=== PATIENT | male | born 1950 | race Caucasian/White ===

== ENCOUNTER → 2023-07-18 06:32 | Outpatient (REF) | payer MEDICARE, OTHER, SELFPAY ==
[2023-07-18 10:56] LABS: HDL Cholesterol 54 mg/dl; LDL Cholesterol, Calculated 73 mg/dl; Total Cholesterol 152 mg/dl (50-199); Triglyceride 126 mg/dl (10-149); Very Low Density Lipoprotein 25 mg/dl (0-30)
== END ==
LOC: HWLAB 06:32
PROVIDERS: ATTENDING PHYSICIAN Nurse Practitioner; FAMILY PHYSICIAN Family Medicine
DX: E78.00 Pure hypercholesterolemia, unspecified (principal)
CPT/HCPCS: 36415; 80061

== ENCOUNTER → 2023-07-21 07:12 | Outpatient (REF) | payer MEDICARE, OTHER, SELFPAY | LOC: HWRAD 07:12 | PROVIDERS: ATTENDING PHYSICIAN Nurse Practitioner; FAMILY PHYSICIAN Family Medicine; REFERRING PHYSICIAN Internal Medicine Cardiovascular Disease | DX: I77.810 Thoracic aortic ectasia (principal) | CPT/HCPCS: 74176 ==

== ENCOUNTER → 2023-08-06 07:06 | Outpatient (REF) | payer MEDICARE, OTHER, SELFPAY ==
[2023-08-06 10:26] LABS: Blood Urea Nitrogen 31 mg/dl (9-20); Calcium 9.8 mg/dl (8.4-10.2); Carbon Dioxide 25 mmol/L (22-30); Chloride 106 mmol/L (98-107); Glucose 105 mg/dl (70-99); Potassium 4.1 mmol/L (3.5-5.1); Sodium 143 mmol/L (135-145); eGFR 49.16
[2023-08-06 12:08] LABS: PSA, Total - Diagnostic 2.36 ng/ml (0.0-4.0)
== END ==
LOC: HWLAB 07:06
PROVIDERS: ATTENDING PHYSICIAN Specialist; FAMILY PHYSICIAN Family Medicine
DX: C61 Malignant neoplasm of prostate (principal); D36.9 Benign neoplasm, unspecified site
CPT/HCPCS: 36415; 80048; 84153

== ENCOUNTER → 2023-10-31 07:25 | Outpatient (REF) | payer MEDICARE, OTHER, SELFPAY ==
[2023-10-31 09:58] LABS: Blood Urea Nitrogen 28 mg/dl (9-20); Calcium 9.7 mg/dl (8.4-10.2); Carbon Dioxide 25 mmol/L (22-30); Chloride 110 mmol/L (98-107); Glucose 104 mg/dl (70-99); Potassium 4.4 mmol/L (3.5-5.1); Sodium 146 mmol/L (135-145)
[2023-10-31 10:24] LABS: PSA, Total - Diagnostic 1.14 ng/ml (0.0-4.0)
== END ==
LOC: HWLAB 07:25
PROVIDERS: ATTENDING PHYSICIAN Specialist; FAMILY PHYSICIAN Family Medicine
DX: C61 Malignant neoplasm of prostate (principal); D36.9 Benign neoplasm, unspecified site
CPT/HCPCS: 36415; 80048; 84153

== ENCOUNTER → 2023-11-20 06:56 | Outpatient (REF) | payer MEDICARE, OTHER, SELFPAY ==
[2023-11-20 10:19] LABS: ALT (SGPT) 49 U/L (0-50); AST (SGOT) 50 U/L (17-59); Albumin 4.6 g/dl (3.5-5.0); Alkaline Phosphatase 104 U/L (38-126); Blood Urea Nitrogen 26 mg/dl (9-20); Carbon Dioxide 26 mmol/L (22-30); Chloride 109 mmol/L (98-107); Glucose 100 mg/dl (70-99); HDL Cholesterol 53 mg/dl; LDL Cholesterol, Calculated 63 mg/dl; Potassium 4.4 mmol/L (3.5-5.1); Sodium 143 mmol/L (135-145); Total Bilirubin 1.1 mg/dl (0.2-1.3); Total Cholesterol 133 mg/dl (50-199); Total Protein 7.4 g/dl (6.3-8.2); Triglyceride 85 mg/dl (10-149); Very Low Density Lipoprotein 17 mg/dl (0-30)
== END ==
LOC: HWLAB 06:56
PROVIDERS: ATTENDING PHYSICIAN Family Medicine
DX: E78.5 Hyperlipidemia, unspecified (principal)
CPT/HCPCS: 36415; 80053; 80061

== ENCOUNTER → 2023-12-08 07:01 | Outpatient (REF) | payer MEDICARE, OTHER, SELFPAY ==
[2023-12-08 10:27] LABS: Blood Urea Nitrogen 27 mg/dl (9-20); Calcium 9.8 mg/dl (8.4-10.2); Carbon Dioxide 26 mmol/L (22-30); Chloride 110 mmol/L (98-107); Glucose 103 mg/dl (70-99); Phosphorus 3.7 mg/dl (2.5-4.5); Potassium 4.2 mmol/L (3.5-5.1); Sodium 144 mmol/L (135-145); eGFR 49.16
[2023-12-08 10:52] LABS: Urine Protein < 5 mg/dl
== END ==
LOC: HWLAB 07:01
PROVIDERS: ATTENDING PHYSICIAN Specialist; FAMILY PHYSICIAN Family Medicine
DX: I10 Essential (primary) hypertension (principal); E78.5 Hyperlipidemia, unspecified; N17.9 Acute kidney failure, unspecified
CPT/HCPCS: 36415; 80048; 82570; 83970; 84100; 84156

== ENCOUNTER → 2023-12-30 07:24 | Outpatient (REF) | payer MEDICARE, OTHER, SELFPAY ==
[2023-12-30 14:44] LABS: Uric Acid 7.1 mg/dl (3.5-8.5)
== END ==
LOC: HWLAB 07:24
PROVIDERS: ATTENDING PHYSICIAN Specialist; FAMILY PHYSICIAN Family Medicine
DX: I10 Essential (primary) hypertension (principal); N18.31 Chronic kidney disease, stage 3a
CPT/HCPCS: 36415; 84550

== ENCOUNTER → 2024-01-30 12:19 | Outpatient (REF) | payer MEDICARE, OTHER, SELFPAY ==
[2024-01-30 16:02] LABS: ALT (SGPT) 32 U/L (0-50); AST (SGOT) 35 U/L (17-59); Albumin 4.4 g/dl (3.5-5.0); Alkaline Phosphatase 92 U/L (38-126); Blood Urea Nitrogen 26 mg/dl (9-20); Calcium 9.9 mg/dl (8.4-10.2); Carbon Dioxide 23 mmol/L (22-30); Chloride 107 mmol/L (98-107); Glucose 96 mg/dl (70-99); Potassium 4.5 mmol/L (3.5-5.1); Sodium 145 mmol/L (135-145); Total Bilirubin 1.1 mg/dl (0.2-1.3); eGFR 49.16
[2024-01-30 16:16] LABS: NT-proBNP 1940 pg/ml
== END ==
LOC: HWLAB 12:19
PROVIDERS: ATTENDING PHYSICIAN Internal Medicine Cardiovascular Disease; FAMILY PHYSICIAN Family Medicine
DX: R79.89 Other specified abnormal findings of blood chemistry (principal); I50.30 Unspecified diastolic (congestive) heart failure
CPT/HCPCS: 36415; 80053; 83880

== ENCOUNTER → 2024-02-17 07:24 | Outpatient (REF) | payer MEDICARE, OTHER, SELFPAY ==
[2024-02-17 10:02] LABS: Blood Urea Nitrogen 23 mg/dl (9-20); Calcium 9.7 mg/dl (8.4-10.2); Carbon Dioxide 22 mmol/L (22-30); Chloride 111 mmol/L (98-107); Glucose 107 mg/dl (70-99); Potassium 4.1 mmol/L (3.5-5.1); Sodium 148 mmol/L (135-145); eGFR 49.16
[2024-02-17 10:36] LABS: PSA, Total - Diagnostic 0.92 ng/ml (0.0-4.0)
== END ==
LOC: HWLAB 07:24
PROVIDERS: ATTENDING PHYSICIAN Specialist; FAMILY PHYSICIAN Family Medicine
DX: C61 Malignant neoplasm of prostate (principal); D36.9 Benign neoplasm, unspecified site
CPT/HCPCS: 36415; 80048; 84153

== ENCOUNTER → 2024-02-18 07:44 | Outpatient (REF) | payer MEDICARE, OTHER, SELFPAY | LOC: DHCBC/DCA 07:44 | PROVIDERS: ATTENDING PHYSICIAN Internal Medicine Cardiovascular Disease; FAMILY PHYSICIAN Family Medicine | DX: I48.91 Unspecified atrial fibrillation (principal); I48.92 Unspecified atrial flutter; R79.89 Other specified abnormal findings of blood chemistry | CPT/HCPCS: 78452; 93017; A9500; J2785 ==

== ENCOUNTER → 2024-04-05 09:45 | Outpatient (REF) | payer MEDICARE, OTHER, SELFPAY | LOC: DHSLP 09:45 | PROVIDERS: ATTENDING PHYSICIAN Internal Medicine Cardiovascular Disease; FAMILY PHYSICIAN Family Medicine | DX: G47.19 Other hypersomnia (principal); R06.83 Snoring | CPT/HCPCS: 95800 ==

== ENCOUNTER → 2024-04-20 06:17 | Outpatient (REF) | payer MEDICARE, OTHER, SELFPAY ==
[2024-04-20 09:48] LABS: LDH 226 U/L (120-246)
[2024-04-20 10:03] LABS: % Basophils 0.9 % (0-2); % Eosinophils 4.5 % (0-6); % Immature Granulocytes 0.3 % (0-0.5); % Lymphocytes 38.2 % (20.5-51.1); % Monocytes 9.9 % (1.7-9.3); % Neutrophils 46.2 % (42.2-75.2); Absolute Basophils 0.1 10^3/uL (0-0.2); Absolute Eosinophils 0.3 10^3/uL (0-0.7); Absolute Lymphocytes 2.2 10^3/uL (1.2-3.4); Absolute Monocytes 0.6 10^3/uL (0.1-0.6); Absolute Neutrophils 2.7 10^3/uL (1.4-6.5); Hematocrit 45.6 % (39.0-52.0); Hemoglobin 15.4 g/dL (13.0-18.0); Mean Corp Hgb Conc. 33.8 g/dL (33.0-37.0); Mean Corpuscular Hgb 29.6 pg (27.0-31.0); Mean Corpuscular Volume 87.7 fL (80.0-94.0); Mean Platelet Volume 10.3 fL (7.4-10.4); Nucleated Red Blood Cells % 0 % (-); Platelet Count 183 10^3/uL (130-400); Red Cell Dist. Width 13.6 % (11.5-14.5); White Blood Cell Count 5.7 10^3/uL (4.8-10.8)
== END ==
LOC: HWLAB 06:17
PROVIDERS: ATTENDING PHYSICIAN Internal Medicine Hematology & Oncology; FAMILY PHYSICIAN Family Medicine
DX: C85.90 Non-Hodgkin lymphoma, unspecified, unspecified site (principal); C61 Malignant neoplasm of prostate
CPT/HCPCS: 36415; 83615; 85025

== ENCOUNTER → 2024-05-13 12:09 | Outpatient (REF) | payer MEDICARE, OTHER, SELFPAY ==
[2024-05-13 15:38] LABS: Blood Urea Nitrogen 24 mg/dl (9-20); Calcium 9.7 mg/dl (8.4-10.2); Carbon Dioxide 23 mmol/L (22-30); Chloride 107 mmol/L (98-107); Glucose 121 mg/dl (70-99); Potassium 4.4 mmol/L (3.5-5.1); Sodium 144 mmol/L (135-145); eGFR 48.85
[2024-05-13 16:07] LABS: PSA, Total - Diagnostic 1.03 ng/ml (0.0-4.0)
== END ==
LOC: HWLAB 12:09
PROVIDERS: ATTENDING PHYSICIAN Specialist; FAMILY PHYSICIAN Family Medicine
DX: C61 Malignant neoplasm of prostate (principal); D36.9 Benign neoplasm, unspecified site
CPT/HCPCS: 36415; 80048; 84153

== ENCOUNTER 2024-05-18 06:45 | Day surgery (SDC) | payer MEDICARE, OTHER, SELFPAY | END 2024-05-18 09:00 | disposition home or self-care (01) | LOC: CATH 06:45 | PROVIDERS: ATTENDING PHYSICIAN Student in an Organized Health Care Education/Training Program; FAMILY PHYSICIAN Family Medicine; OTHER PHYSICIAN Internal Medicine Cardiovascular Disease | DX: I48.91 Unspecified atrial fibrillation (principal); Z95.3 Presence of xenogenic heart valve; I08.1 Rheumatic disorders of both mitral and tricuspid valves; Z79.01 Long term (current) use of anticoagulants; Z79.84 Long term (current) use of oral hypoglycemic drugs; Z79.899 Other long term (current) drug therapy | CPT/HCPCS: 93312; 93320; 93325 ==

== ENCOUNTER 2024-05-20 05:57 | Day surgery (SDC) | payer MEDICARE, OTHER, SELFPAY ==
[2024-04-21 09:30] VITALS: BMI 26.0
[2024-05-20] VITALS (11 sets, daily range): BP systolic 92–136; BP diastolic 75–96; BMI 25.2
--- NOTE | 2024-05-20 08:00 | ITS.CL.ABL ---
[employer] - Ablation
Ablation
Procedure Report:
Primary Day Care Aide: Juli Perez MD
Procedure Date: 05/20/2024
Patient History:
Patient is a pleasant 74-year-old male with past medical history significant for hypertension, hyperlipidemia, bioprosthetic aortic valve 10/13/2019, prostate cancer, CKD 3 A (left radical nephrectomy 2021), dilated aortic root, paroxysmal likely
persistent symptomatic atrial fibrillation on Eliquis.
See H&P for complete details.
Indication:
Symptomatic persistent atrial fibrillation
Arrhythmia Specific History:
Prior Medical Therapies for Rate and Rhythm Control:
X Beta-karissa
[ ] Calcium channel-karissa
[ ] Amiodarone
[ ] Dronederone
[ ] Sotalol
[ ] Flecainide
[ ] Dofetilide
[ ] Options limited by bradycardia
[ ] Options limited by comorbid renal disease
Prior Procedural Therapies for AF/AFL:
[ ] Cardioversion
[ ] Pulmonary Vein Isolation
[ ] Posterior Wall Isolation
[ ] Additional lines (Specify)
[ ] Surgical Torrez-MAZE or PVI (Specify)
Procedure Performed:
X AF ablation procedure (12468) -- includes LA/CS pacing, trans-septal, 3D mapping, + ICE
[ ] +IV drug (87428)
[ ] +Other Arrhythmia (91092)
X +Other AF Line/ablation (31715) - PWI (roof, floor, wall)
Risks and expected recovery has been explained in detail. Alternative options have been explored, and in a shared-decision making fashion we have decided that this was the most appropriate procedure.
Method
NPO status confirmed. Grounding pad applied. Defibrillator pads applied. Continuous surface ECG, pulse oximetry, and blood pressure were monitored. Procedure was performed under general anesthesia, with anesthesia services.
Both groins were clipped, prepped with Chloraprep, and draped in sterile fashion. Time out was called. Local anesthesia administered with bupivacaine. The right femoral vein was accessed for catheter placement, using ultrasound guidance,
micro-puncture needle/wire, and modified seldinger technique. 3 sheaths were placed. The following catheters were used:
[ ] Tacticath SE (D/F Curve) ablation catheter
X Viewflex 9Fr ICE catheter
X Inquiry decapolar 6Fr diagnostic catheter
[ ] CRD Hex 6Fr
[ ] Arctic Front Advance Cryoballoon ([ ]28mm[ ]23mm)
[ ] Achieve Advance mapping catheter ([ ]15mm[ ]20mm)
X FlexCath Contour 10 Fr with PulseSelect PFA Catheter
X Advisor HD Grid Mapping Catheter, SE
[ ] AcusDiana AcuNav 8 Fr ICE catheter
[ ]Other: [ ]
Intracardiac ultrasound (ICE) was carefully advanced into the right atrium to guide sheath placement over a J-wire, catheter placement, guide trans-septal puncture, identify potential complications, identify anatomic structures and ensure proper
contact between ablation catheter and tissue.
Heparin was given prior to trans-septal puncture. Heparin was given to achieve and maintain a target ACT of 300-400 seconds throughout the procedure.
Trans-septal access was performed under ICE guidance. The trans-septal puncture was performed with a SafeSept wire through a Brockenbrough needle assembly through the steerable sheath. The wire was visualized as it entered the LSPV and system
advanced under ICE guidance and fluoroscopy into the LA. The Brockenbrough needle assembly, SafeSept wire and sheath dilator were removed under negative pressure. LA pressure was measured and recorded.
ICE and 3D mapping was performed to identify relevant cardiac structures. A careful 3D map was created to assess for regions of low-voltage and abnormal electrogram signals using HD grid mapping catheter and PulseSelect catheter. Additional mapping
was performed as outlined below.
Prior to ablation, glycopyrrolate was provided. PulseSelect catheter was advanced over J-wire to the ostium of each vein. Pulmonary vein isolation was performed with ostial and antral lesions in a circumferential manner. Contact was visualized via
EAM, ICE, fluoroscopy, and EGM signals. Posterior wall isolation was performed by anchoring the J-wire within the pulmonary vein and placing the PulseSelect catheter in contact with the posterior wall as visualized by aforementioned methods.
Following completion of ablation lesions, sinus rhythm was restored with a 200J synchronized DCCV and a post-ablation voltage/activation map was performed in sinus rhythm. Entrance and exit block were confirmed for each vein and the posterior wall.
Catheter and sheath were removed from the left atrium and post-ablation intracardiac echo evaluation was consistent with pre-ablation with no changes and no pericardial effusion and there is no left atrial thrombus or left ventricle thrombus seen.
Electrophysiology study was performed. Hemostasis was obtained with figure of 8 stitch for each groin and with manual pressure. Protamine was used for reversal.
Estimated Blood Loss
5 mL
Complications
None
Fluoroscopy: 6.3 minutes; 45.91 mGy; DAP 5.65
Baseline Intervals:
Rhythm: AF
QRS: 99 ms
QT: 420 ms
QTc: 445 ms
Post-Procedure Intervals:
MI: 207 ms
QRS: 97 ms
QT: 419 ms
QTc: 464 ms
A-A: 817 ms
R-R: 817 ms
AVWB: 370 ms
AVNERP: 600/310 ms
AERP: 600/210 ms
Recommendations
- Bedrest with straight-leg precautions as ordered
- Anticipate same day discharge if patient meeting clinical metrics
- Resume home medications as indicated
- Ok to resume anticoagulation tonight if patient and groin sites stable
- PPI daily for 30 days
- Plan for follow-up in office in 1-2 weeks with EP CH[facility]STAL; primary dance choreographer as scheduled
Vic Serrato DO
Clinical Cardiac Electrophysiology Scientist
cc: Juli Perez MD; Todd Monk DO
[2024-05-20 08:52] LABS: ACT-LR - POC 316 Seconds (116-155)
[2024-05-20 09:08] LABS: ACT-LR - POC 377 Seconds (116-155)
[2024-05-20 09:35] LABS: ACT-LR - POC 353 Seconds (116-155)
[2024-05-20 10:02] LABS: ACT-LR - POC 337 Seconds (116-155)
[2024-05-20 10:12] LABS: ACT-LR - POC 181 Seconds (116-155)
--- NOTE | 2024-05-20 14:54 | W.PN.UPDATE ---
Update Note
Progress Note Update
74 yo WM s/p PVI (same day). He denies cp, sob, wilfred diet, voiding, amb w/o dizziness, EKG SR, R fem site c/d/i no HT, soft. He will resume Eliquis tonight at home. Activity restrictions reviewed. He will f/u [facility] in 2-4 weeks at [facility], then [address] Bustos. He is for d/c home after 3pm.
== END 2024-05-20 15:00 | disposition home or self-care (01) ==
LOC: CATH 05:57
PROVIDERS: ATTENDING PHYSICIAN Internal Medicine Cardiovascular Disease; FAMILY PHYSICIAN Family Medicine; OTHER PHYSICIAN Internal Medicine Cardiovascular Disease
DX: I48.19 Other persistent atrial fibrillation (principal); R06.02 Shortness of breath; R00.2 Palpitations; Z79.01 Long term (current) use of anticoagulants; Z79.899 Other long term (current) drug therapy; N18.31 Chronic kidney disease, stage 3a; I12.9 Hypertensive chronic kidney disease with stage 1 through stage 4 chronic kidney disease, or unspecified chronic kidney disease; Z90.5 Acquired absence of kidney; Z85.46 Personal history of malignant neoplasm of prostate; C85.90 Non-Hodgkin lymphoma, unspecified, unspecified site; I10 Essential (primary) hypertension; E78.5 Hyperlipidemia, unspecified; N40.0 Benign prostatic hyperplasia without lower urinary tract symptoms; Z95.3 Presence of xenogenic heart valve; K76.0 Fatty (change of) liver, not elsewhere classified; Z79.84 Long term (current) use of oral hypoglycemic drugs; K21.9 Gastro-esophageal reflux disease without esophagitis; Z86.16 Personal history of COVID-19; Z86.006 Personal history of melanoma in-situ; Z90.49 Acquired absence of other specified parts of digestive tract
CPT/HCPCS: C1732; C1894; C1730; C1769; 85347; 93005; 93656; 93657; C1733; C1766

== ENCOUNTER → 2024-06-03 06:41 | Outpatient (REF) | payer MEDICARE, OTHER, SELFPAY ==
[2024-06-03 10:03] LABS: Hemoglobin 14.5 g/dL (13.0-18.0)
[2024-06-03 10:25] LABS: Urine Protein < 5 mg/dl
[2024-06-03 10:45] LABS: Blood Urea Nitrogen 32 mg/dl (9-20); Calcium 9.3 mg/dl (8.4-10.2); Carbon Dioxide 25 mmol/L (22-30); Chloride 108 mmol/L (98-107); Glucose 115 mg/dl (70-99); Phosphorus 3.6 mg/dl (2.5-4.5); Potassium 4.2 mmol/L (3.5-5.1); Sodium 143 mmol/L (135-145); Uric Acid 8.4 mg/dl (3.5-8.5); eGFR 45.21
== END ==
LOC: HWLAB 06:41
PROVIDERS: ATTENDING PHYSICIAN Specialist; FAMILY PHYSICIAN Family Medicine
DX: I10 Essential (primary) hypertension (principal); E78.5 Hyperlipidemia, unspecified; N17.9 Acute kidney failure, unspecified; N28.9 Disorder of kidney and ureter, unspecified
CPT/HCPCS: 36415; 80048; 82570; 83970; 84100; 84156; 84550; 85018

== ENCOUNTER → 2024-08-16 10:33 | Outpatient (REF) | payer MEDICARE, OTHER, SELFPAY ==
[2024-08-16 17:32] LABS: Blood Urea Nitrogen 27 mg/dl (9-20); Calcium 9.9 mg/dl (8.4-10.2); Carbon Dioxide 24 mmol/L (22-30); Chloride 108 mmol/L (98-107); Glucose 93 mg/dl (70-99); Potassium 4.5 mmol/L (3.5-5.1); Sodium 143 mmol/L (135-145); eGFR 48.85
[2024-08-16 18:03] LABS: PSA, Total - Diagnostic 0.78 ng/ml (0.0-4.0)
== END ==
LOC: HWLAB 10:33
PROVIDERS: ATTENDING PHYSICIAN Specialist; FAMILY PHYSICIAN Family Medicine
DX: D36.9 Benign neoplasm, unspecified site (principal); C61 Malignant neoplasm of prostate
CPT/HCPCS: 36415; 80048; 84153

== ENCOUNTER → 2024-09-02 06:50 | Outpatient (REF) | payer MEDICARE, OTHER, SELFPAY ==
[2024-09-02 09:40] LABS: HDL Cholesterol 41 mg/dl; LDL Cholesterol, Calculated 63 mg/dl; Total Cholesterol 134 mg/dl (50-199); Triglyceride 151 mg/dl (10-149); Very Low Density Lipoprotein 30 mg/dl (0-30)
== END ==
LOC: HWLAB 06:50
PROVIDERS: ATTENDING PHYSICIAN Internal Medicine Cardiovascular Disease; FAMILY PHYSICIAN Family Medicine
DX: E78.5 Hyperlipidemia, unspecified (principal)
CPT/HCPCS: 36415; 80061

== ENCOUNTER 2024-10-08 06:18 | Day surgery (SDC) | payer MEDICARE, OTHER, SELFPAY | END 2024-10-08 10:12 | disposition home or self-care (01) | LOC: GI 06:18 | PROVIDERS: ATTENDING PHYSICIAN Internal Medicine Gastroenterology | DX: R12 Heartburn (principal); K22.2 Esophageal obstruction; K44.9 Diaphragmatic hernia without obstruction or gangrene | CPT/HCPCS: 43235 ==

== ENCOUNTER → 2024-11-24 06:48 | Outpatient (REF) | payer MEDICARE, OTHER, SELFPAY ==
[2024-11-24 09:43] LABS: Hematocrit 45.9 % (39.0-52.0); Hemoglobin 14.6 g/dL (13.0-18.0); Mean Corp Hgb Conc. 31.8 g/dL (33.0-37.0); Mean Corpuscular Volume 89.0 fL (80.0-94.0); Nucleated Red Blood Cells % 0 % (-); Platelet Count 168 10^3/uL (130-400); Red Cell Dist. Width 13.4 % (11.5-14.5)
[2024-11-24 09:51] LABS: Urine Character Clear (Clear)
[2024-11-24 09:56] LABS: ALT (SGPT) 27 U/L (0-50); AST (SGOT) 28 U/L (17-59); Albumin 4.5 g/dl (3.5-5.0); Alkaline Phosphatase 80 U/L (38-126); Blood Urea Nitrogen 25 mg/dl (9-20); Calcium 9.7 mg/dl (8.4-10.2); Carbon Dioxide 25 mmol/L (22-30); Chloride 112 mmol/L (98-107); Glucose 106 mg/dl (70-99); HDL Cholesterol 43 mg/dl; LDL Cholesterol, Calculated 72 mg/dl; Potassium 4.1 mmol/L (3.5-5.1); Sodium 144 mmol/L (135-145); Total Protein 7.4 g/dl (6.3-8.2); Uric Acid 8.1 mg/dl (3.5-8.5); Very Low Density Lipoprotein 26 mg/dl (0-30); eGFR 53.07
[2024-11-24 10:13] LABS: Glycohemoglobin (HgbA1c) 5.8 % (4.0-5.6)
[2024-11-24 10:45] LABS: PSA, Total - Diagnostic 0.95 ng/ml (0.0-4.0); TSH 2.07 uIU/ml (0.47-4.68)
[2024-11-24 11:35] LABS: Microalb - Urine Creatinine 98.400 mg/dl
[2024-11-24 11:38] LABS: Microalbumin, Random Urine <0.6 mg/dl (0.6-1.7)
== END ==
LOC: HWLAB 06:48
PROVIDERS: ATTENDING PHYSICIAN Specialist; FAMILY PHYSICIAN Family Medicine; REFERRING PHYSICIAN Specialist
DX: I10 Essential (primary) hypertension (principal); Z90.5 Acquired absence of kidney; N18.31 Chronic kidney disease, stage 3a; Z00.00 Encounter for general adult medical examination without abnormal findings; E78.5 Hyperlipidemia, unspecified; Z13.1 Encounter for screening for diabetes mellitus; Z79.899 Other long term (current) drug therapy; D36.9 Benign neoplasm, unspecified site; C61 Malignant neoplasm of prostate
CPT/HCPCS: 36415; 80053; 80061; 81003; 82043; 82570; 83036; 84153; 84443; 84550; 85025

== ENCOUNTER → 2025-02-08 06:48 | Outpatient (REF) | payer MEDICARE, OTHER, SELFPAY ==
[2025-02-11 04:26] LABS: 24 Hour Urine Total Volume Random mL; Urine Collection Length Random hr
== END ==
LOC: HWLAB 06:48
PROVIDERS: ATTENDING PHYSICIAN Internal Medicine Cardiovascular Disease; FAMILY PHYSICIAN Family Medicine
DX: I51.7 Cardiomegaly (principal)
CPT/HCPCS: 36415; 82784; 83520; 83521; 84155; 84156; 84165; 86334; 86335

== ENCOUNTER → 2025-02-23 06:43 | Outpatient (REF) | payer MEDICARE, OTHER, SELFPAY ==
[2025-02-23 10:41] LABS: Blood Urea Nitrogen 22 mg/dl (9-20); Calcium 9.4 mg/dl (8.4-10.2); Carbon Dioxide 26 mmol/L (22-30); Chloride 112 mmol/L (98-107); Glucose 112 mg/dl (70-99); Potassium 4.4 mmol/L (3.5-5.1); Sodium 142 mmol/L (135-145); eGFR 42.04
[2025-02-23 11:09] LABS: PSA, Total - Diagnostic 0.75 ng/ml (0.0-4.0)
== END ==
LOC: HWLAB 06:43
PROVIDERS: ATTENDING PHYSICIAN Specialist; FAMILY PHYSICIAN Family Medicine
DX: C61 Malignant neoplasm of prostate (principal); D36.9 Benign neoplasm, unspecified site
CPT/HCPCS: 36415; 80048; 84153

== ENCOUNTER → 2025-02-28 09:29 | Outpatient (REF) | payer MEDICARE, OTHER, SELFPAY | LOC: RAD 09:29 | PROVIDERS: ATTENDING PHYSICIAN Internal Medicine Cardiovascular Disease; FAMILY PHYSICIAN Family Medicine | DX: Z95.2 Presence of prosthetic heart valve (principal); I70.0 Atherosclerosis of aorta; I65.23 Occlusion and stenosis of bilateral carotid arteries; I51.7 Cardiomegaly; I10 Essential (primary) hypertension; E78.5 Hyperlipidemia, unspecified; I48.91 Unspecified atrial fibrillation | CPT/HCPCS: 78803; A9538 ==

== ENCOUNTER → 2025-03-23 06:44 | Outpatient (REF) | payer MEDICARE, OTHER, SELFPAY ==
[2025-03-23 08:41] LABS: Blood Urea Nitrogen 17 mg/dl (9-20); Calcium 9.4 mg/dl (8.4-10.2); Carbon Dioxide 25 mmol/L (22-30); Chloride 109 mmol/L (98-107); Glucose 100 mg/dl (70-99); Potassium 4.0 mmol/L (3.5-5.1); Sodium 145 mmol/L (135-145); eGFR 53.07
== END ==
LOC: HWLAB 06:44
PROVIDERS: ATTENDING PHYSICIAN Specialist; FAMILY PHYSICIAN Family Medicine
DX: I10 Essential (primary) hypertension (principal); E78.5 Hyperlipidemia, unspecified; N17.9 Acute kidney failure, unspecified
CPT/HCPCS: 36415; 80048

== ENCOUNTER → 2025-05-06 13:11 | Outpatient (REF) | payer MEDICARE, OTHER, SELFPAY ==
[2025-05-06 14:14] LABS: Hematocrit 41.1 % (39.0-52.0); Hemoglobin 13.8 g/dL (13.0-18.0); Mean Corp Hgb Conc. 33.6 g/dL (33.0-37.0); Mean Corpuscular Volume 87.6 fL (80.0-94.0); Nucleated Red Blood Cells % 0 % (-); Platelet Count 154 10^3/uL (130-400); Red Cell Dist. Width 14.1 % (11.5-14.5)
[2025-05-06 14:46] LABS: Blood Urea Nitrogen 22 mg/dl (9-20); Calcium 9.6 mg/dl (8.4-10.2); Carbon Dioxide 23 mmol/L (22-30); Chloride 108 mmol/L (98-107); Glucose 103 mg/dl (70-99); LDH 250 U/L (120-246); Potassium 4.4 mmol/L (3.5-5.1); Sodium 139 mmol/L (135-145); Uric Acid 5.5 mg/dl (3.5-8.5); eGFR 48.85
[2025-05-06 15:17] LABS: PSA, Total - Diagnostic 0.77 ng/ml (0.0-4.0)
== END ==
LOC: REG 13:11
PROVIDERS: ATTENDING PHYSICIAN Specialist; FAMILY PHYSICIAN Family Medicine; OTHER PHYSICIAN Specialist; REFERRING PHYSICIAN Internal Medicine Hematology & Oncology
DX: C85.90 Non-Hodgkin lymphoma, unspecified, unspecified site (principal); C61 Malignant neoplasm of prostate; D36.9 Benign neoplasm, unspecified site; E78.5 Hyperlipidemia, unspecified; I10 Essential (primary) hypertension; Z85.46 Personal history of malignant neoplasm of prostate
CPT/HCPCS: 36415; 80048; 83615; 84153; 84550; 85025